=== PATIENT | female | born 1995 | race African-American/Black ===

== ENCOUNTER 2020-06-27 03:12 | Emergency (ER) | payer BC, OTHER ==
[~2020-06-27] VITALS: Ht 165.1 cm; Wt 69.0 kg
[2020-06-27 03:21] VITALS: BP 114/53
[2020-06-27] MEDS ORDERED: FAMOTIDINE 20MG TABLET PO ONE (03:45)
[2020-06-27] MEDS ORDERED: DIPHENHYDRAMINE 25MG CAPSULE PO ONE (03:45)
[2020-06-27] MEDS ORDERED: PREDNISONE 20MG TABLET PO ONE (03:45)
[2020-06-27] MEDS ORDERED: FAMO-135 MT (04:36)
[2020-06-27] MEDS ORDERED: P20 MT (04:36)
[2020-06-27] MEDS ORDERED: DIPH25CA83 MT (04:36)
== END 2020-06-27 04:46 | disposition home or self-care (01) ==
LOC: ER 03:12
DX: L50.9 Urticaria, unspecified (principal)
CPT/HCPCS: 81025; 99284; J7512; Q0163